=== PATIENT | male | born 1960 | race Caucasian/White ===

== ENCOUNTER 2018-06-06 16:53 | Observation (INO) | payer BC, MEDICARE ==
[2018-06-06] MEDS ORDERED: Nitroglycerin 2% Oint 1 GM UD Packet TOP ONE (17:11)
[2018-06-06] MEDS ORDERED: Aspirin 81 MG Tab.Chew PO ONE (17:11)
[2018-06-06] MEDS ORDERED: Nitroglycerin 0.4 MG Tab.SL SL PRN (17:11)
[2018-06-06] MEDS ORDERED: Acetaminophen 325 MG Tab PO ONE (17:16)
--- NOTE | 2018-06-06 17:17 | EDM.PDOC ---
ED HPI GENERAL MEDICAL PROBLEM - General Stated Complaint: CHEST PAIN Time Seen by Provider: 06/06/18 16:53 Source of Information: Reports: Patient, Family History Limitations: Reports: No Limitations - History of Present Illness INITIAL COMMENTS - FREE TEXT/NARRATIVE: 58 y.o.w.m with a h/o HTN, Asthma, neck injury, came to the ED, with his wive by PC, due to to SSCP. Pt rated hie CP 9/10. 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 The Pain was not radiating, there was no diaphoresis, there was no new trauma. His neck pain is getting slowly worse over the years. He feels, the left and right arm heaviness may be related to his neck injury > 3 years ago. The chest pain today was similar to his previous pains, but worse. Pt underwent a chemical stress test which was neg. His D Dimer was elevated in faina past and his angio CT Chest was neg for large central PE. Study was always poor due to his body anatomy. No N/V/D, no Dizziness, no lightheadedness. No other acute medical issues. The initial ECG showed a NSR without acute ST/T wave changes. Pt received 3 SL 0.4 mg NTG -after an IV with NS was started- which made the SSCP to subside. 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: Reports: Aspirin Midsternal chest & L posterior shoulder Pain Score (Numeric/FACES): 5 - Related Data Allergies Allergy/AdvReac Type Severity Reaction Status Date / Time oxycodone [Oxycodone] Allergy Unknown Hives Verified 06/06/18 22:48 oxycodone HCl Allergy Unknown Hives Verified 06/06/18 22:48 [From OxyContin] tramadol Allergy Unknown Hives Verified 06/06/18 22:48 yellow dye Allergy Unknown Rash Verified 06/06/18 22:48 hydrocodone Allergy Itching Verified 06/06/18 22:48 hydromorphone [From Dilaudid] Allergy Itching Verified 06/06/18 22:48 strawberry Allergy Itching Verified 06/06/18 22:48 Home Meds: Home Meds Albuterol Sulfate [Albuterol Sulfate HFA] 2 puff PO Q4HR PRN 12/16/13 [History] Aspirin [Ecotrin] 81 mg PO DAILY 05/12/14 [History] Montelukast [Singulair] 10 mg PO DAILY 08/24/15 [History] Fluticasone Propionate [Flonase] 2 sprays NASBOTH DAILY 08/29/15 [History] Acetaminophen with Codeine [Tylenol with Codeine #3 Tablet] 1 each PO Q4HR PRN # 24 tablet 04/19/16 [Rx] Acetaminophen [Tylenol Extra Strength] 1,000 mg BID 06/06/18 [History] Albuterol/Ipratropium [DuoNeb 3.0-0.5 MG/3 ML] 3 ml NEB QID PRN 06/06/18 [ History] Cyclobenzaprine [Flexeril] 10 mg PO BID 06/06/18 [History] Esomeprazole [NexIUM] 40 mg PO DAILY 06/06/18 [History] Fluticasone/Salmeterol [Advair 500-50] 1 puff BID 06/06/18 [History] Furosemide 40 mg DAILY 06/06/18 [History] Gabapentin [Neurontin] 600 mg PO BID 06/06/18 [History] Umeclidinium Brm/Vilanterol Tr [Anoro Ellipta 62.5-25 MCG] 1 puff IH DAILY 06/06 [History] Past Medical History - Past Health History Medical/Surgical History: Denies Medical/Surgical History HEENT History: Reports: Impaired Vision, Other (See Below) Other HEENT History: wears glasses Respiratory History: Reports: Asthma, COPD Gastrointestinal History: Reports: GERD, Hemorrhoids, Irritable Bowel Syndrome Musculoskeletal History: Reports: Back Pain, Chronic, Other (See Below) Other Musculoskeletal History: bulged disc Neurological History: Reports: TIA - Infectious Disease History Infectious Disease History: Reports: Chicken Pox - Past Surgical History HEENT Surgical History: Reports: Other (See Below) Musculoskeletal Surgical History: Reports: Carpal Tunnel, Other (See Below) Social & Family History - Family History Family Medical History: Noncontributory - Caffeine Use Caffeine Use: Reports: Coffee, Tea ED ROS GENERAL - Review of Systems Review Of Systems: See Below Constitutional: Reports: No Symptoms HEENT: Reports: No Symptoms Respiratory: Reports: No Symptoms Cardiovascular: Reports: Chest Pain Endocrine: Reports: No Symptoms GI/Abdominal: Reports: No Symptoms : Reports: No Symptoms Musculoskeletal: Reports: Arm Pain (L>R) Skin: Reports: No Symptoms Neurological: Reports: No Symptoms Psychiatric: Reports: No Symptoms Hematologic/Lymphatic: Reports: No Symptoms Immunologic: Reports: No Symptoms ED EXAM, GENERAL - Physical Exam Exam: See Below Exam Limited By: No Limitations General Appearance: Alert, WD/WN, Mild Distress, Obese (morbid) Eye Exam: Bilateral Eye: Normal Inspection Ears: Normal External Exam Ear Exam: Bilateral Ear: Auricle Normal Nose: Normal Inspection, Normal Mucosa, No Blood Throat/Mouth: Normal Lips, Normal Voice, No Airway Compromise, Other (poor dentition) Head: Atraumatic, Normocephalic Neck: Normal Inspection, Supple, Non-Tender, Full Range of Motion Respiratory/Chest: No Respiratory Distress, Lungs Clear, Normal Breath Sounds, Chest Non-Tender Cardiovascular: Normal Peripheral Pulses, Regular Rate, Rhythm, No Edema, No Gallop Peripheral Pulses: 2+: Brachial (L) GI/Abdominal: Normal Bowel Sounds (Male) Exam: No Hernia Rectal (Males) Exam: Deferred Back Exam: Normal Inspection, Full Range of Motion, Vertebral Tenderness (Neck injury 3 years ago ) Extremities: Normal Inspection, Normal Range of Motion, Non-Tender, Other ( bilat chronic lymphedema. ) Neurological: Alert, Oriented, CN II-XII Intact, Normal Cognition, Other (came by wheelchair) Psychiatric: Normal Affect, Normal Mood Skin Exam: Warm, Dry, Intact, Normal Color, No Rash Lymphatic: No Adenopathy EKG INTERPRETATION EKG Date: 06/06/18 Time: 16:55 Rhythm: NSR Rate (Beats/Min): 92 Christine: Normal P-Wave: Present QRS: Normal ST-T: Normal QT: Normal Comparison: NA - No Prior EKG Course - Vital Signs Text/Narrative:: 58 y.o.w.m with a h/o HTN, Asthma, neck injury, came to the ED, with his wive by PC, due to to SSCP. Pt rated hie CP 9/10. 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 The Pain was not radiating, there was no diaphoresis, there was no new trauma. His neck pain is getting slowly worse over the years. He feels, the left and right arm heaviness may be related to his neck injury > 3 years ago. The chest pain today was similar to his previous pains, but worse. Pt underwent a chemical stress test which was neg. His D Dimer was elevated in faina past and his angio CT Chest was neg for large central PE. Study was always poor due to his body anatomy. No N/V/D, no Dizziness, no lightheadedness. No other acute medical issues. The initial ECG showed a NSR without acute ST/T wave changes. Pt received 3 SL 0.4 mg NTG -after an IV with NS was started- which made the SSCP to subside. Initial vitals were: BP 179/89 RR 20 Pulse ox 96% on RA Pulse 92 Temp 37.5 PE: Morbid obese 58 Y.P. W M with SSCP and bilateral arm numbers/heaviness Imaging: Angio CT Chest was neg for large. central PE, poor study with a dilated main pulmonary artery. Labs: D Dimer was 4.0, CBC was neg except HGB was 1,6 and MCV was 78.8 BMP was neg except BUN was 20 BUN/CR was elevated. Troponin was 0.017 nl. Impression: Unstable angina, H/O chronic, intermittent neck pain (> 3 years), morbid obesity, H/O Asthma Tx: ASA, SL NTG. Lovenox SQ Reexam: SSCP subsided 7.26 pm Consultation: Dr. Dozier, Hospitalist. [facility]: Would accept pt to R/O NM. Plan: Admit pt to our inpatient service as OBS 06/06/2018 10:08 pm ECG: NSR TX 180, QTc [address]/T wave changes Rate 81 Last Recorded V/S: Last Vital Signs Temp 36.4 C 06/06/18 20:20 Pulse 85 06/06/18 20:43 Resp 16 06/06/18 20:43 BP 131/56 L 06/06/18 20:20 Pulse Ox 97 06/06/18 20:43 - Orders/Labs/Meds Orders: Active Orders 24 hr Category Date Time Status Patient Status [ADT] Routine ADT 06/06/18 19:42 Active EKG Documentation Completion [RC] 0400 Care 06/06/18 19:52 Active EKG Documentation Completion [RC] ASDIRECTED Care 06/06/18 17:11 Active EKG Documentation Completion [RC] ASDIRECTED Care 06/06/18 19:51 Active Oxygen Therapy [RC] PRN Care 06/06/18 19:42 Active VTE/DVT Education [RC] Per Unit Routine Care 06/06/18 19:42 Active Vital Signs [RC] Q4H Care 06/06/18 19:42 Active Heart Healthy Diet [DIET] Diet 06/06/18 Breakfast Ordered Ang Chest [CT] Stat Exams 06/06/18 17:41 Taken CXR [Chest 1V Frontal] [CR] Stat Exams 06/06/18 17:11 Taken TROPONIN I [CHEM] Stat Lab 06/07/18 04:00 Ordered Nitroglycerin [Nitrostat] Med 06/06/18 17:11 Active 0.4 mg SL Q5M PRN Ondansetron [Zofran] Med 06/06/18 19:42 Active 4 mg IV Q4H PRN Resuscitation Status Routine Resus Stat 06/06/18 19:42 Ordered EKG 12 Lead [EK] Routine Ther 06/06/18 17:10 Ordered EKG 12 Lead [EK] Routine Ther 06/06/18 22:00 Ordered EKG 12 Lead [EK] Routine Ther 06/07/18 04:00 Ordered Medication Orders Nitroglycerin (Nitrostat) 0.4 mg SL Q5M PRN PRN Reason: Chest Pain Last Admin: 06/06/18 17:08 Dose: 0.4 mg Ondansetron HCl (Zofran) 4 mg IV Q4H PRN PRN Reason: Nausea/Vomiting Labs: Laboratory Tests 06/06/18 06/06/18 06/06/18 Range/Units 17:05 17:05 17:05 WBC 7.5 (4.5-12.0) X10-3/uL RBC 4.76 (4.30-5.75) x10(6)uL Hgb 11.5 L (13.5-17.8) g/dL Hct 37.5 (30.0-51.3) % MCV 78.8 L (80-96) fL MCH 24.2 L (27.7-33.6) pg MCHC 30.8 L (32.2-35.4) g/dL RDW 15.0 (11.5-15.5) % Plt Count 277 (125-369) X10(3)uL MPV 8.3 (7.4-10.4) fL Neut % (Auto) 73.9 (46-82) % Lymph % (Auto) 13.7 (13-37) % [place] % (Auto) 8.5 (4-12) % Eos % (Auto) 2 (1.0-5.0) % Baso % (Auto) 2 (0-2) % Neut # (Auto) 5.6 (1.6-8.3) # Lymph # (Auto) 1.0 (0.6-5.0) # [place] # (Auto) 0.6 (0.0-1.3) # Eos # (Auto) 0.1 (0.0-0.8) # Baso # (Auto) 0.2 (0.0-0.2) # PT 10.8 (8.7-11.1) INR 1.11 (0.89-1.13) D-Dimer, Quantitative 4.02 H (0.0-0.59) mg/LFEU Sodium 138 (135-145) mmol/L Potassium 4.5 (3.5-5.3) mmol/L Chloride 101 (100-110) mmol/L Carbon Dioxide 25 (21-32) mmol/L BUN 20 H (7-18) mg/dL Creatinine 0.9 (0.70-1.30) mg/dL Est Cr Clr Drug Dosing TNP Estimated GFR (MDRD) > 60 (>60) BUN/Creatinine Ratio 22.2 H (9-20) Glucose 97 (80-116) mg/dL Calcium 9.2 (8.6-10.2) mg/dL Troponin I (<0.017-0.056) ng/mL 06/06/18 Range/Units 17:05 WBC (4.5-12.0) X10-3/uL RBC (4.30-5.75) x10(6)uL Hgb (13.5-17.8) g/dL Hct (30.0-51.3) % MCV (80-96) fL MCH (27.7-33.6) pg MCHC (32.2-35.4) g/dL RDW (11.5-15.5) % Plt Count (125-369) X10(3)uL MPV (7.4-10.4) fL Neut % (Auto) (46-82) % Lymph % (Auto) (13-37) % [place] % (Auto) (4-12) % Eos % (Auto) (1.0-5.0) % Baso % (Auto) (0-2) % Neut # (Auto) (1.6-8.3) # Lymph # (Auto) (0.6-5.0) # [place] # (Auto) (0.0-1.3) # Eos # (Auto) (0.0-0.8) # Baso # (Auto) (0.0-0.2) # PT (8.7-11.1) INR (0.89-1.13) D-Dimer, Quantitative (0.0-0.59) mg/LFEU Sodium (135-145) mmol/L Potassium (3.5-5.3) mmol/L Chloride (100-110) mmol/L Carbon Dioxide (21-32) mmol/L BUN (7-18) mg/dL Creatinine (0.70-1.30) mg/dL Est Cr Clr Drug Dosing Estimated GFR (MDRD) (>60) BUN/Creatinine Ratio (9-20) Glucose (80-116) mg/dL Calcium (8.6-10.2) mg/dL Troponin I < 0.017 L (<0.017-0.056) ng/mL Meds: Medications Generic Name Dose Route Start Last Admin Trade Name Freq PRN Reason Stop Dose Admin Nitroglycerin 0.4 mg 06/06/18 17:11 06/06/18 17:08 Nitrostat SL 0.4 mg Q5M PRN Administration Chest Pain Ondansetron HCl 4 mg 06/06/18 19:42 Zofran IV Q4H PRN Nausea/Vomiting Discontinued Medications Generic Name Dose Route Start Last Admin Trade Name Freq PRN Reason Stop Dose Admin Acetaminophen 650 mg 06/06/18 17:16 06/06/18 18:11 Tylenol PO 06/06/18 17:17 650 mg NOW ONE Administration Aspirin 243 mg 06/06/18 17:11 06/06/18 17:28 Aspirin PO 06/06/18 17:12 243 mg ONETIME ONE Administration Enoxaparin Sodium 160 mg 06/06/18 22:42 06/06/18 22:52 Lovenox SUBCUT 06/06/18 22:43 160 mg ONETIME STA Administration Iopamidol 100 ml 06/06/18 17:49 06/06/18 18:05 Isovue-370 (76%) IV 06/06/18 17:50 100 ml . DIRECTED ONE Administration Nitroglycerin 1 gm 06/06/18 17:11 06/06/18 22:39 Nitro-Bid 2% TOP 06/06/18 17:12 Not Given ONETIME ONE Departure - Departure Time of Disposition: 19:00 Disposition: Admitted As Inpatient 66 Condition: Fair Clinical Impression: Unstable angina - My Orders Last 24 Hours: My Active Orders 06/06/18 17:10 EKG 12 Lead [EK] Routine 06/06/18 17:11 EKG Documentation Completion [RC] ASDIRECTED CXR [Chest 1V Frontal] [CR] Stat Nitroglycerin [Nitrostat] 0.4 mg SL Q5M PRN 06/06/18 17:41 Ang Chest [CT] Stat 06/06/18 19:42 Patient Status [ADT] Routine Oxygen Therapy [RC] PRN VTE/DVT Education [RC] Per Unit Routine Vital Signs [RC] Q4H Ondansetron [Zofran] 4 mg IV Q4H PRN Resuscitation Status Routine 06/06/18 19:51 EKG Documentation Completion [RC] ASDIRECTED 06/06/18 19:52 EKG Documentation Completion [RC] 0400 06/06/18 22:00 EKG 12 Lead [EK] Routine 06/06/18 Breakfast Heart Healthy Diet [DIET] 06/07/18 04:00 TROPONIN I [CHEM] Stat EKG 12 Lead [EK] Routine - Assessment/Plan Last 24 Hours: My Active Orders 06/06/18 17:10 EKG 12 Lead [EK] Routine 06/06/18 17:11 EKG Documentation Completion [RC] ASDIRECTED CXR [Chest 1V Frontal] [CR] Stat Nitroglycerin [Nitrostat] 0.4 mg SL Q5M PRN 06/06/18 17:41 Ang Chest [CT] Stat 06/06/18 19:42 Patient Status [ADT] Routine Oxygen Therapy [RC] PRN VTE/DVT Education [RC] Per Unit Routine Vital Signs [RC] Q4H Ondansetron [Zofran] 4 mg IV Q4H PRN Resuscitation Status Routine 06/06/18 19:51 EKG Documentation Completion [RC] ASDIRECTED 06/06/18 19:52 EKG Documentation Completion [RC] 0400 06/06/18 22:00 EKG 12 Lead [EK] Routine 06/06/18 Breakfast Heart Healthy Diet [DIET] 06/07/18 04:00 TROPONIN I [CHEM] Stat EKG 12 Lead [EK] Routine
[2018-06-06] MEDS ORDERED: Iopamidol 755 Mg/ML 100 ML Bottle IV ONE (17:49)
[2018-06-06] MEDS ORDERED: Ondansetron 4 MG/2 ML SDV IV PRN (19:42)
[2018-06-06] MEDS ORDERED: Enoxaparin 150 MG/1 ML Syringe SUBCUT STA (19:47)
[2018-06-06] MEDS ORDERED: Enoxaparin 80 MG/0.8 ML Syringe SUBCUT STA (22:42)
[2018-06-07] MEDS ORDERED: ALBUTEROL SULFATE PO PRN (07:56)
[2018-06-07 08:39] VITALS: BP 114/56
[2018-06-07] MEDS ORDERED: Non-Formulary Medication 1 Each (Furosemide [Furosemide] 40 MG) PO SCH (09:00)
[2018-06-07] MEDS ORDERED: Non-Formulary Medication 1 Each (Gabapentin [Neurontin] 600 MG) PO SCH (09:00)
[2018-06-07] MEDS ORDERED: ASPIRIN 81 MG PO SCH (09:00)
[2018-06-07] MEDS ORDERED: Non-Formulary Medication 1 Each (Montelukast [Singulair] 10 MG) PO SCH (09:00)
[2018-06-07] MEDS ORDERED: Non-Formulary Medication 1 Each (Umeclidinium Brm/Vilanterol Tr [Anoro Ellipta 62.5-25 Mcg IH SCH (09:00)
[2018-06-07] MEDS ORDERED: Non-Formulary Medication 1 Each (Fluticasone/Salmeterol [Advair 500-50] 1 PUFF) INH SCH (09:00)
--- NOTE | 2018-06-07 10:09 | HP ---
ADMISSION DATE: 06/06/2018 CHIEF COMPLAINT: Chest pain. HISTORY OF PRESENT ILLNESS: Carlos is a 58-year-old man from [place], [place], with a history of asthma, chronic venous stasis edema, obesity, and obstructive sleep apnea, treated successfully with palatoplasty. According to the patient, he was sitting having just finished his lunch when he developed sharp pain in the subxiphoid area. This radiated straight through to the back. He was not short of breath, nauseated, or sweaty, but because of this came into the emergency room, where he was evaluated and then admitted to observation care to rule out [place]. The patient states his pain has not recurred, and he is otherwise felt well since getting here. PAST MEDICAL HISTORY: Positive for asthma. He has had previous episodes of chest pain and nuclear stress test several years ago was negative. Stress echo and echocardiogram 2 years ago were also negative. He has not had exertional symptoms that have changed. He does have asthma that has been under good control. Past medical history also includes chronic obesity, history of low back pain, bilateral carpal tunnels. He has had osteoarthritis of the neck with neck pain and is on gabapentin for neuropathic pain. PAST SURGICAL HISTORY: He is status post appendectomy, cholecystectomy, right knees arthroscopic surgery, T and A, left knee chondroplasty. MEDICATIONS: 1. Anoro Ellipta one puff daily. 2. Singulair 10 mg daily. 3. Gabapentin 600 mg b.i.d. 4. Furosemide 40 mg daily. 5. Advair 500/50 one puff b.i.d. 6. Aspirin 81 mg daily. 7. Albuterol HFA p.r.n. ALLERGIES: Oxycodone and tramadol, both reported to cause hives. Yellow dye causes a rash. Hydrocodone, hydromorphone, and strawberries all caused itching. HABITS: Nonsmoker. Occasional alcohol. FAMILY AND SOCIAL HISTORY: Mother at a young age, cause unknown. Father had alcoholism. One sister has arthritis. The patient is and lives with his in [place]. REVIEW OF SYSTEMS: GENERAL: No seizures, syncope, or recent significant weight change. SKIN: Negative for rash. HEENT: No recent changes in hearing or vision. No sore throat or URI. RESPIRATORY: No cough or purulent sputum. CARDIAC: No upper chest pain. No dyspnea on exertion. No palpitations. GI: No abdominal pain. He has occasional GERD symptoms. No hematochezia or melena. : No hematuria or UTI symptoms. MUSCULOSKELETAL: No joint inflammation. He does have chronic swelling of the left lower extremity. ASSESSMENT: 1. Atypical subxiphoid area pain. This does not sound cardiac at this time and it is likely gastroesophageal reflux disease related. 2. Chronic asthma, stable. 3. Morbid obesity. 4. Osteoarthritis of the cervical spine with history of neck pain and radicular symptoms. 5. Osteoarthritis of the knees. 6. Osteoarthritis, lumbar spine. 7. History of sleep apnea, resolved after palatoplasty. 8. Chronic venous stasis with mild lower extremity edema. PLAN: He is admitted to observation care. We will recheck troponin, observe on telemetry, and if rules out, may be discharged in the morning. /[id number] ANDRE/JUDY
--- NOTE | 2018-06-07 13:03 | CR ---
INDICATION: Chest pain. CHEST: A portable AP upright view of the chest was obtained 06/06/18 and compared with 04/19/16 and 08/24/15. The heart remains normal in size and shape. The aorta is tortuous with calcification in the arch. Evidence of exogenous obesity is noted. Upper lung field pulmonary vasculature is minimally prominent, raising question of pulmonary vascular congestion. This could be on the basis of an acute myocardial event or a noncardiac cause and should be correlated clinically. No consolidating pneumonia or effusion was identified. IMPRESSION: 1. No definite acute process but difficult to exclude a minimal or early CHF. 2. ASD aorta. 3. Exogenous obesity. MTDD
--- NOTE | 2018-06-08 02:27 | DISCH ---
DISCHARGE DATE: 06/07/2018 PRIMARY FINAL DIAGNOSIS: Atypical chest pain. OPERATIONS: None. COMPLICATIONS: None. SUMMARY: Carlos is a 58-year-old man who was admitted from the emergency room after experiencing sharp subxiphoid chest pain. This was not associated with dyspnea, nausea, sweats, etc. He has had previous cardiac evaluations in the past for similar symptoms that have been negative. Initial EKG was unremarkable. Vital signs were stable. Hemoglobin was slightly low at 11.5. D-dimer was elevated at 4. CT chest negative for PE. Chest x-ray showed changes of COPD. Troponin less than 0.017. This remained the same for 2 subsequent measurements. Carlos never had recurrence of his pain. By the next morning, he was anxious to be discharged. DISCHARGE MEDICATIONS: He was discharged to home to continue medications as follows: 1. Anoro Ellipta 1 puff daily. 2. Singulair 10 mg daily. 3. Gabapentin 600 mg b.i.d. 4. Furosemide 40 mg daily. 5. Advair 500/50 one puff b.i.d. 6. Aspirin 81 mg daily. 7. Albuterol HFA 2 puffs every 4 hours p.r.n. He is asked to have followup in the clinic should he have recurrence of symptoms and consider Maalox or Mylanta for subxiphoid discomfort or reflux symptoms. /[id number] ANDRE/JUDY
== END 2018-06-07 09:20 | disposition home or self-care (01) ==
LOC: FB.ED 16:53 → FB.MS 19:42 → FB.ED 20:20
PROVIDERS: ADMIT Emergency Medicine; ATTEND Family Medicine
DX: R07.89 Other chest pain (principal); I10 Essential (primary) hypertension; J44.9 Chronic obstructive pulmonary disease, unspecified; E66.01 Morbid (severe) obesity due to excess calories; Z68.42 Body mass index [BMI] 45.0-49.9, adult; M17.0 Bilateral primary osteoarthritis of knee; M47.816 Spondylosis without myelopathy or radiculopathy, lumbar region; M47.812 Spondylosis without myelopathy or radiculopathy, cervical region; I87.8 Other specified disorders of veins; Z79.82 Long term (current) use of aspirin; Z79.899 Other long term (current) drug therapy; Z91.018 Allergy to other foods; Z88.5 Allergy status to narcotic agent; Z91.048 Other nonmedicinal substance allergy status
CPT/HCPCS: 36415; 71045; 71275; 80048; 84484; 85025; 85379; 85610; 93005; 99285; A9270; J1650; Q9967; 93010; 96372; G0378

== ENCOUNTER 2019-01-03 17:26 | Emergency (ER) | payer OTHER, MEDICARE ==
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
[2019-01-03 19:07] VITALS: BP 158/69; PULSE 95
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
== END 2019-01-03 18:54 | disposition home or self-care (01) ==
LOC: FB.ED 17:26
DX: S20.211A Contusion of right front wall of thorax, initial encounter (principal); I10 Essential (primary) hypertension; J44.9 Chronic obstructive pulmonary disease, unspecified; K21.9 Gastro-esophageal reflux disease without esophagitis; E66.9 Obesity, unspecified; Z68.43 Body mass index [BMI] 50.0-59.9, adult; Z86.73 Personal history of transient ischemic attack (TIA), and cerebral infarction without residual deficits; Z88.5 Allergy status to narcotic agent; Z91.09 Other allergy status, other than to drugs and biological substances; Z91.018 Allergy to other foods; Z79.82 Long term (current) use of aspirin; Z79.899 Other long term (current) drug therapy; Z79.51 Long term (current) use of inhaled steroids; Z87.891 Personal history of nicotine dependence; V73.5XXA Driver of bus injured in collision with car, pick-up truck or van in traffic accident, initial encounter; Y92.410 Unspecified street and highway as the place of occurrence of the external cause
CPT/HCPCS: 71101-RT; 99283-25

== ENCOUNTER 2019-09-02 06:38 | Day surgery (SDC) | payer MEDICARE, OTHER ==
[2019-09-02] MEDS ORDERED: Propofol 200 MG/20 ML SDV IV ONE (06:39)
[2019-09-02] MEDS ORDERED: Sodium Chloride 0.9% 10 ML Syringe FLUSH PRN (06:45)
[2019-09-02] MEDS ORDERED: Lactated Ringers 1,000 ML IV SCH (06:45)
[2019-09-02] MEDS ORDERED: Albuterol/Ipratropium 3.0-0.5 MG/3 ML Neb Soln NEB ONE (07:00)
--- NOTE | 2019-09-02 08:07 | PREOP ---
ADMISSION DATE: 09/02/2019 CHIEF COMPLAINT: History of colon polyps. HISTORY OF PRESENT ILLNESS: This gentleman had a colonoscopy 5 years ago and had 3 adenomas removed. He is due for followup scope. Really has no new issues. SOCIAL HISTORY: He is a former smoker as well as smokeless tobacco user. Denies any alcohol use. PAST MEDICAL HISTORY: Significant for hypertension, meniscus tear of the left knee, asthma, COPD, degenerative joint disease of the lumbar spine, fibromyalgia, gastroesophageal reflux disease, hyperlipidemia, irritable bowel syndrome, obesity, sleep apnea. PAST SURGICAL HISTORY: Significant for both left and right total knee, carpal tunnel release on both sides, upper endoscopy, colonoscopy, cholecystectomy, appendectomy, tonsillectomy and UPPP. MEDICATIONS: Include; 1. Neurontin 600 mg 3 times a day. 2. Tylenol 325 mg as needed. 3. Singulair 10 mg, 1 tablet every night at bedtime. 4. Astelin 137 mcg/spray, nasal spray, 2 sprays each nostril every 12 hours. 5. Proventil inhaler 2.5 mg/3 mL, 0.083% inhalation solution. 6. Fluticasone/salmeterol 232/14 mcg puffs inhalers, 1 puff 2 times a day. 7. Albuterol inhaler 18 mcg, 2 puffs every 4 hours as needed. 8. Ferrous sulfate 65 mg per 325 mg tablet. 9. Lasix 40 mg. 10.Flexeril 10 mg 3 times a day as needed. 11.Nexium 40 mg daily. 12.Baby aspirin 81 mg. REVIEW OF SYSTEMS: The patient denies any new HEENT, pulmonary, cardiac or GI issues. PHYSICAL EXAMINATION: GENERAL: This is a well-developed, well-nourished white male, appearing in no acute distress. HEENT: Grossly within normal limits. LUNGS: Clear to auscultation. HEART: Regular rate and rhythm. ABDOMEN: Soft, nontender. ASSESSMENT: Personal history of colon polyps. PLAN: C-scope. Procedure and risks explained to the patient to include bleeding, perforation, and infection. The patient expresses understanding and asked us to proceed. /[id number] /MODL
--- NOTE | 2019-09-02 08:30 | PCM.OPNOTE ---
- General Post-Op/Procedure Note Date of Surgery/Procedure: 09/02/19 Operative Procedure(s): c scope Findings: normal colonoscopy Pre Op Diagnosis: personal hx of colon polyps Post-Op Diagnosis: normal colonoscopy Anesthesia Technique: ALL Primary Surgeon: Rubio Polo Anesthesia Provider: Manas Rao Pathology: none Complications: None Condition: Good Free Text/Narrative:: see dictation
[2019-09-02 09:29] VITALS: BP 163/79; PULSE 77
--- NOTE | 2019-09-02 14:17 | OR ---
DATE OF OPERATION: 09/02/2019 SURGEON: Rubio Polo MD PROCEDURE PERFORMED: Colonoscopy. PREOPERATIVE DIAGNOSIS: Personal history of colon polyps. POSTOPERATIVE DIAGNOSIS: Normal exam. INDICATIONS FOR PROCEDURE: Mr. Purvis is a 59-year-old white male, who had 3 adenomatous polyps removed 5 years ago. He presents now for followup exam. DESCRIPTION OF OPERATION: After an excellent IV sedation was administered, digital rectal exam was performed. No marked abnormality was noted. Flexible colonoscope was inserted and advanced to the cecum without difficulty. The prep was excellent. The following findings were noted: Ascending colon, unremarkable. Transverse colon, unremarkable. Descending colon, unremarkable. Sigmoid and rectum, unremarkable. Colon was deflated as the scope was removed. The patient tolerated the procedure well, was taken to Recovery in good condition. RECOMMENDATIONS: Repeat colonoscopy in 10 years. /[id number] /MODL
== END 2019-09-02 09:41 | disposition home or self-care (01) ==
LOC: FB.SDS 06:38
PROVIDERS: ATTEND Surgery
DX: Z12.11 Encounter for screening for malignant neoplasm of colon (principal); I10 Essential (primary) hypertension; J44.9 Chronic obstructive pulmonary disease, unspecified; K21.9 Gastro-esophageal reflux disease without esophagitis; E78.5 Hyperlipidemia, unspecified; E66.9 Obesity, unspecified; Z79.82 Long term (current) use of aspirin; Z79.899 Other long term (current) drug therapy; Z86.010 Personal history of colon polyps; Z98.890 Other specified postprocedural states; Z87.891 Personal history of nicotine dependence; Z68.43 Body mass index [BMI] 50.0-59.9, adult
CPT/HCPCS: G0105; J2704; J7120; 00812-QZ; J7620-GY